=== PATIENT | male | born 1965 | race Caucasian/White ===

== ENCOUNTER 2017-11-01 08:18 | Day surgery (SDC) | payer BC ==
[~2017-11-01] VITALS: Ht 180.3 cm; Wt 112.5 kg
[~2017-11-01 08:18] MED LIST: ASPI325; HYDACE5 PO; HYDACE7.5 PO; IBUP200; PENVK500 PO; RXOXYACE PO; TRAM50
== END 2017-11-01 22:42 | disposition home or self-care (01) ==
LOC: ORSCMMR 08:18 → ORD 09:30 → ORSCMMR 10:00
PROVIDERS: Internal Medicine Gastroenterology
PROC: 0DJD8ZZ Inspection of Lower Intestinal Tract, Via Natural or Artificial Opening Endoscopic (ICD-10-PCS; principal; 2017-11-01 10:00)
DX: Z12.11 Encounter for screening for malignant neoplasm of colon (principal)
CPT/HCPCS: J7030

== ENCOUNTER 2020-02-06 21:56 | Inpatient (IN) | payer OTHER, BC ==
[~2020-02-06] VITALS: Ht 182.9 cm; Wt 105.7 kg
[2020-02-06 22:32] LABS: BASOPHILS ABSOLUTE AUTO 0.02 K/mm3 (0.00-0.23); BASOPHILS PERCENT AUTO 0 % (0-2); EOSINOPHILS ABSOLUTE AUTO 0.07 K/mm3 (0.00-0.68); EOSINOPHILS PERCENT AUTO 1 % (0-6); Hematocrit 47.2 % (37.0-53.0); Hemoglobin 15.9 g/dL (13.5-17.5); IMMATURE GRAN ABSOLUTE AUTO 0.09 K/mm3 (0.00-0.10); IMMATURE GRAN PERCENT AUTO 1 % (0-1); LYMPHOCYTES ABSOLUTE AUTO 2.02 K/mm3 (0.84-5.20); LYMPHOCYTES PERCENT AUTO 17 % (21-46); MONOCYTES ABSOLUTE AUTO 0.53 K/mm3 (0.16-1.47); MONOCYTES PERCENT AUTO 5 % (4-13); Mean Corpuscular HGB 30.7 pg (26.0-34.0); Mean Corpuscular HGB Conc 33.7 g/dL (31.5-36.5); Mean Corpuscular Volume 91 fL (80-100); NEUTROPHILS ABSOLUTE AUTO 9.17 K/mm3 (1.96-9.15); NEUTROPHILS PERCENT AUTO 77 % (41-73); Platelet Count 177 K/mm3 (150-400); RDW Coefficient Variation 11.4 % (11.7-14.2); RDW Standard Deviation 38.1 fL (35.1-46.3); Red Blood Cell Count 5.18 M/mm3 (4.30-5.90)
[2020-02-06 22:49] LABS: International Normalized Ratio 0.99; Prothrombin Time Results 10.6 Sec (9.7-11.5)
[2020-02-06 22:56] LABS: Alanine Aminotransfer (ALT/SGP 119 U/L (12-78); Albumin, Blood 4.3 g/dL (3.4-5.0); Albumin/Globulin Ratio 1.2 (0.8-1.8); Alk Phos 67 U/L (50-136); Anion Gap 6 mmol/L (6-16); Aspartate Aminotrans (AST/SGOT 112 U/L (12-37); Bilirubin, Total 1.1 mg/dL (0.1-1.0); Blood Urea Nitrogen 15 mg/dL (8-24); Bun/Creatinine Ratio 13.6 (12.0-20.0); CO2, Blood 27 mmol/L (21-32); Chloride, Blood 108 mmol/L (98-108); Ethanol (Alcohol), Blood, Med <3 mg/dL; Globulin, Blood 3.7 g/dL (2.2-4.0); Glomerular Filtration Rate >60 (60-); Glucose, Blood 126 mg/dL (70-99); Potassium, Blood 3.5 mmol/L (3.5-5.5); Sodium, Blood 141 mmol/L (136-145)
[2020-02-07] MEDS ORDERED: ASPIR 8181 M1 (01:00)
--- NOTE | 2020-02-07 02:40 | NUR ---
PT ARRIVED TO ROOM A/O, CHEST TUBE IN PLACE TO RIGHT LATERAL CHEST. NI AIR LEAKS NOTED. TUBE PLACED TO LOW SX, BUBBLING @ 20MM. SANG DRNG NOTED IN TUBE. CREPITUS NOTED FROM ABOVE RIGHT NIPPLE LINE TO RIGHT CLAVICLE, AND FROM RIGHT ANTERIOR SHOULDER TO UPPER ARM. SATS 91% ON RA. RESP SHALLOW/PAINFUL PER PT. 2LO2 NC PLACED AFTER PAIN MEDS GIVEN. PT HAS SCATTERED ABRASIONS TO BILAT KNEES AND THIGHS, RIGHT KNUCKLES, AND RIGHT SHOULDER/SCAPULA. WOUNDS CLEANSED W/H2O AND PEROXIDE. BACITRACIN OINTMENT APPLIED, WOUNDS COVERED W/TELFA PADS AND KERLEX. PT ORIENTED TO ROOM/CALL LIGHT. WILL CONT TO CLOSELY MONITOR.
--- NOTE | 2020-02-07 07:20 | NUR ---
PT NEW ADMIT THIS SHIFT FOR PNEUMO/MULT RIGHT RIB FX. SATS >90% ON 2LO2 NC. CHEST TUBE HAD TOTAL OF 200ML SANG OUTPUT SINCE PLACEMENT. NO CHANGES IN CREPITUS-REMAINS ABOVE R NIPPLE TO CALVICLE, AND ON UPPER AREA OF R ARM. RESP SHALLOW. RUE REMAINS NUMB, PT WIGGLES FINGERS, CAP REFILL WNL. PAIN MGD W/1MG IV DILAUDID. WOUNDS CLEANSED AND DRESSED.
--- NOTE | 2020-02-07 16:15 | NUR ---
LEG WOUND DRESSINGS CHANGED. NO S/SX INFECTION NOTED. PATIENT STATES PAIN TOLERABLE WITH IV PAIN MED. TAKING PO. VOIDING. VSS. CT INTACT TO SXN; 170 ML OUT THIS SHIFT. PAS IN PLACE. CALL LIGHT IN REACH. SPOKE WITH PATIENT RE: UP TO CHAIR TOMORROW, PATIENT AGREEABLE.
--- NOTE | 2020-02-07 16:45 | NUR ---
DR JENKINS IN TO SEE. REQUESTED PO PAIN MED AND BC ORDERS.
[2020-02-07 18:04] LABS: Source, Urine Voided
[2020-02-07 18:11] LABS: Appearance, Urine Clear (Clear); Bilirubin, Urine Neg (Neg); Blood, Urine 3+ (Neg); Color, Urine Amber (P-Yellow); Glucose Qualitative, Urine Neg (Neg); Ketones, Urine 1+ (Neg); Leukocyte Esterase, Urine Neg (Neg); Nitrite, Urine Neg (Neg); Protein, Urine 2+ (Neg); Urobilinogen, Urine NORM (Normal)
[2020-02-07 18:26] LABS: Bacteria Rare /hpf; Squamous Epithelial Cells Not Seen /hpf (Few); White Blood Cells, Urine 0-2 /hpf (0-5)
--- NOTE | 2020-02-07 18:27 | NUR ---
SHIFT SUMMARY PATIENT VERY PAINFUL WITH MOVEMENT. STATES PAIN TOLERABLE WHEN LYING STILL. MEDICATED PER ORDERS. TOLERATING PO. VOIDING. VSS. CT TUBE INTACT TO SXN. LS W/O CHANGE, DECREASED R LOBES. DENIES SOB. SATS > 90% ON RA. USING IS. VSS. SON IN TO SEE TODAY. NO ACUTE CHANGES.
[2020-02-07 18:30] LABS: U Amphetamine Screen Not Detected; U Barbituate Screen Not Detected; U Benzodiazapine Screen Not Detected; U Buprenorphine Screen Not Detected; U Cannabinoids Screen Not Detected; U Cocaine Screen Not Detected; U Methadone Screen Not Detected; U Methamphetamine Screen Not Detected; U Opiates Screen DETECTED; U Oxycodone Screen Not Detected; U Phencyclidine Screen Not Detected; U Propoxyphene Screen Not Detected
[2020-02-08 05:10] LABS: BASOPHILS ABSOLUTE AUTO 0.01 K/mm3 (0.00-0.23); BASOPHILS PERCENT AUTO 0 % (0-2); EOSINOPHILS ABSOLUTE AUTO 0.02 K/mm3 (0.00-0.68); EOSINOPHILS PERCENT AUTO 0 % (0-6); Hematocrit 41.7 % (37.0-53.0); Hemoglobin 14.1 g/dL (13.5-17.5); IMMATURE GRAN ABSOLUTE AUTO 0.03 K/mm3 (0.00-0.10); IMMATURE GRAN PERCENT AUTO 0 % (0-1); LYMPHOCYTES ABSOLUTE AUTO 1.17 K/mm3 (0.84-5.20); LYMPHOCYTES PERCENT AUTO 13 % (21-46); MONOCYTES ABSOLUTE AUTO 0.62 K/mm3 (0.16-1.47); MONOCYTES PERCENT AUTO 7 % (4-13); Mean Corpuscular HGB 31.1 pg (26.0-34.0); Mean Corpuscular HGB Conc 33.8 g/dL (31.5-36.5); Mean Corpuscular Volume 92 fL (80-100); NEUTROPHILS ABSOLUTE AUTO 7.09 K/mm3 (1.96-9.15); NEUTROPHILS PERCENT AUTO 79 % (41-73); Platelet Count 141 K/mm3 (150-400); RDW Coefficient Variation 11.8 % (11.7-14.2); RDW Standard Deviation 39.8 fL (35.1-46.3); Red Blood Cell Count 4.53 M/mm3 (4.30-5.90); White Blood Cell Count 8.94 K/mm3 (4.00-11.30)
[2020-02-08 05:27] LABS: Anion Gap 3 mmol/L (6-16); Blood Urea Nitrogen 12 mg/dL (8-24); Bun/Creatinine Ratio 13.8 (12.0-20.0); CO2, Blood 28 mmol/L (21-32); Calcium, Blood 8.3 mg/dL (8.5-10.1); Chloride, Blood 106 mmol/L (98-108); Creatinine, Blood 0.87 mg/dL (0.60-1.20); Glomerular Filtration Rate >60 (60-); Glucose, Blood 109 mg/dL (70-99); Potassium, Blood 3.9 mmol/L (3.5-5.5); Sodium, Blood 137 mmol/L (136-145)
--- NOTE | 2020-02-08 06:41 | NUR ---
SHIFT SUMMARY: ERIC IS A&OX4. CHEST TO TO RU CHEST WALL PATENT, BUBBLING @ 20 MM. HE HAS REPORTED ADEQUATE PAIN CONTROL WITH NORCO AND DILAUDID FOR BREAKTHROUGH PAIN. HE IS USING THE URINAL WITHOUT DIFFICULTY. HE IS TOLERATING PO INTAKE WELL. HE DID HAVE AN EPISODE OF [place] DURING THE NIGHT, BUT STATED THAT HE FEELS IT WAS RELATED TO THE PAIN. ABRASIONS TO R HAND, LEFT SHOULDER, AND BILATERAL KNEES. HE IS LYING IN BED WITH HIS CALL LIGHT IN REACH. WILL REPORT TO DAY SHIFT RN.
--- NOTE | 2020-02-08 17:40 | NUR ---
SHIFT SUMMARY PT A&OX4, VSS, 2LNC, CHEST TUBE RIGHT SIDE @20 MM. PAIN MANAGED WITH 5 MG NORCO, AND 0.5 MG DILAUDID X1 PRETREAT FOR OOB AND UP TO CHAIR. JOSE MIGUEL PO, DENIES N&V. VOIDING WELL, URINAL. EDU & ENC TCDB & I.S. WILL REPORT TO ONCOMING NOC RN.
--- NOTE | 2020-02-08 19:28 | NUR ---
PLAN FOR MONDAY: NPO AT BREAKFAST, CHEST X-RAY AND DEPENDING ON RESULT, DR JENKINS MAY DO A BESIDE PROCEDURE CHEST TUBE PLACEMENT; WILL NEED A SEDATION NURSE FROM ICU/PCU CHARGE.
--- NOTE | 2020-02-09 05:52 | NUR ---
SHIFT SUMMARY: ERIC IS A&OX4. HE IS TOLERATING PO INTAKE WELL. HE WAS MADE NPO AT 0550. CHEST X-RAY SCHEDULED FOR THIS AM. HE REPORTS FEELING THAT HE IS ABLE TO TAKE A DEEPER BREATH. HE REPORTS ADEQUATE PAIN CONTROL WITH ONE TABLET NORCO 5/325 MG. HE USES HIS CALL LIGHT APPROPRIATELY. O2 VIA NASAL CANNULA @ 3 LPM MAINTAINING SATURATIONS > 90%. DRESSINGS CHANGED TO BILATERAL KNEES AND RIGHT HAND THIS SHIFT. HE IS LYING IN BED WITH HIS CALL LIGHT IN REACH. WILL REPORT TO DAY SHIFT RN.
--- NOTE | 2020-02-09 16:25 | NUR ---
CHEST TUBE INSERTION CHEST TUBE INSERTION BY DR JENKINS. PLEASE SEE SEDATION RECORD FOR START TIME/FIXING CARPENTER. Q5MIN VS DOCUMENTED. PT TOLERATED WELL.
--- NOTE | 2020-02-09 17:06 | NUR ---
SHIFT SUMMARY PT A&OX4, VSS, S/P CHEST TUBE PLACED TO MID-UPPER RIGHT LUNG ZONE. PAIN MANAGED WITH 5 MG NORCO, AND 0.5 MG DILAUDID GIVEN PRIOR TO PT GETTING INTO AND OUT OF BED/UP TO CHAIR; STAND PIVOT 2 PP MOD ASSIST. JOSE MIGUEL PO REG DIET. IVF @ 100 MLS/HR. VOIDING WELL; URINAL. TCDB & I.S. EDU & ENC T/O SHIFT. WILL REPORT TO ONCOMING JORGE RN.
--- NOTE | 2020-02-10 06:19 | NUR ---
SHIFT SUMMARY: ERIC IS A&OX4. VSS, NO ACUTE EVENTS OVERNIGHT. CHEST TUBE TO 20 MM SUCTION. HE IS TOLERATING PO INTAKE WELL. IV TO LEFT HAND PATENT. HE IS USING THE URINAL WITHOUT DIFFICULTY. HE REPORTS ADEQUATE PAIN CONTROL WITH ONE TABLET OF NORCO. HE IS LYING IN BED WITH HIS CALL LIGHT IN REACH. WILL REPORT TO DAY SHIFT RN.
--- NOTE | 2020-02-10 22:19 | NUR ---
SITTING IN CHAIR AT BEDSIDE. SAT UP ON EDGE OF BED AFTER BEING MEDICATED FOR PAIN OF 4/10 AND SLING PLACED ON RIGHT ARM. PAIN CONTINUES TO BE 4/10 AFTER AMBULATING TO BATHROOM, URINATING INTO COMMODE, AMBULATING BACK TO SIT ON THE EDGE OF THE BED, THEN SITTING IN CHAIR. GOWN PLACED OVER HIM AFTER CHANGING UNDERWEAR FROM SOILED BOXERS TO CLEAN BIKINI BRIEFS PT WAS EMBARASSED TO BE SEEN. STATES THAT HE WANTS TO SIT UP FOR A WHILE. DENIES FURTHER NEEDS AT THIS TIME. SAFETY MEASURES IN PLACE. WILL CONTINUE TO MONITOR.
--- NOTE | 2020-02-11 06:44 | NUR ---
SHIFT SUMMARY LYING IN SEMI FOWERS WITH EYES CLOSED. HAS RESTED WELL THIS SHIFT. GOT OOB AND AMBULATED IN ROOM, SAT ON COMMODE AND DRAINED GOOD AMOUNT OF SS FLUID FROM CHEST TUBE. DENIES PAIN, DISCOMFORT, OR FURTHER NEEDS AT THIS TIME. SAFETY MEASURES IN PLACE. WILL CONTINUE TO MONITOR AND GIVE HAND OFF TO ONCOMING SHIFT USING SBAR DURING BEDSIDE REPORT.
--- NOTE | 2020-02-11 16:09 | NUR ---
SHIFT SUMMARY CHEST TUBE WAS DC'D TODAY. DRSG SHOWS NO DRAINAGE. NO CHANGES IN RESPIRATORY EFFORT. PT SLEEPING FOR MOST OF AFTERNOON. HE REPORTS HE WORKS [employer] AND THIS IS NORMAL FOR HIM. PAIN SEEMS TO BE IMPROVING. PT HOPFUL FOR DC TOMORROW OR MONDAY.
--- NOTE | 2020-02-12 06:39 | NUR ---
SHIFT SUMMARY AMBULATING IN ROOM AFTER NEEDING ASSISTANCE GETTING OOB. HAS TOLERATED THE INCREASED MOVEMENT WELL. DENIES PAIN, DISCOMFORT, OR FURTHER NEEDS AT THIS TIME. SAFETY MEASURES IN PLACE. WILL CONTINUE TO MONITOR AND GIVE HAND OFF TO ONCOMING SHIFT USING SBAR DURING BEDSIDE REPORT.
[2020-02-12] MEDS ORDERED: HYDR1TAB94 PO (13:05)
--- NOTE | 2020-02-12 15:26 | NUR ---
left knee dressing removed, cleansed with skintegrity wound cleanser. telfa applied and wrapped in coban. left knee dressing partially removed, and patient would like to soak remaining dressing off in shower. some dried serous drainage to bilat knee abrasions. right chest dressings removed x2, sutures intact, no redness, swelling or drainage to chest tube sites discharge instructions reviewed with patient and patient is waiting for his son to arrive to drive him home
--- NOTE | 2020-02-12 16:09 | NUR ---
1601 discharged to home with sons
== END 2020-02-12 16:02 | disposition home or self-care (01) | DRG 200 ==
LOC: ER 21:56 → SURS 02-07 01:19
PROVIDERS: Emergency Medicine; Surgery; ADMIT Surgery
PROC: 0W9900Z Drainage of Right Pleural Cavity with Drainage Device, Open Approach (ICD-10-PCS; principal; 2020-02-06)
PROC: 0W29X0Z Change Drainage Device in Right Pleural Cavity, External Approach (ICD-10-PCS; 2020-02-09)
DX: S27.2XXA Traumatic hemopneumothorax, initial encounter (principal); S22.41XA Multiple fractures of ribs, right side, initial encounter for closed fracture; S27.329A Contusion of lung, unspecified, initial encounter; S27.321A Contusion of lung, unilateral, initial encounter; J98.11 Atelectasis; Z79.82 Long term (current) use of aspirin; Y92.9 Unspecified place or not applicable; S42.109A Fracture of unspecified part of scapula, unspecified shoulder, initial encounter for closed fracture; V20.4XXA Motorcycle driver injured in collision with pedestrian or animal in traffic accident, initial encounter
CPT/HCPCS: 32551; 36415; 71045; 71260; 73030; 73120; 73562-LT; 73562-RT; 74177; 80048; 80053; 81001; 83690; 85025; 85610; 86850; 86900; 86901; 90471; 90714; 96374-59; 96375-59; 99285-25; A9270-GY; G0480; J1170; J2250; J2270; J2405; J3010; J7030; Q9967